=== PATIENT | female | born 1950 | race Two or more races ===

== ENCOUNTER 2020-10-15 19:28 | Emergency (ER) | payer MEDICARE, OTHER ==
[~2020-10-15] VITALS: Ht 157.5 cm; Wt 68.0 kg
[2020-10-15 19:34] VITALS: BP 173/74
[2020-10-15] MEDS ORDERED: MUPIROCIN22 GM TOPIC (19:49)
--- NOTE | 2020-10-15 19:54 | NUR ---
ED Nurse Note: Pt brought into ED via wheelchair. C/O bleeding vein on left ankle that won't stop. Pt is AAO x4, denies pain.
[2020-10-15] MEDS ORDERED: Bacitracin Oint UD TOPIC ONE (20:00)
[2020-10-15] MEDS ORDERED: Surgicel 4in x 8in TOPIC ONE (20:00)
--- NOTE | 2020-10-15 20:00 | NUR ---
ER DISCHARGE NOTE: Surgicell, bacitracin, gauze, and wrap applied to left ankle. Patient is cleared to be discharged per ER MD, pt is aaox4, on room air, with stable vital signs. pt was given d/c and prescription instructions, pt was able to verbalize understanding, pt id band removed. pt assisted back to vehicle via wheechair. pt took all belongings.
--- NOTE | 2020-10-15 20:04 | Emergency Room Report ---
History of Present Illness General Chief Complaint: Lower Extremity Injury Source: Patient Present Illness HPI Patient is a 70-year-old female past medical history of varicose veins who presents to the ER complaining of bleeding from her left ankle. Patient states that she scratched her leg and noted some bleeding at home. She became nervous and came to the emergency room. Bleeding has stopped before arrival. She denies being on any blood thinners or aspirin. She denies any weakness. She denies any other trauma. She denies any history of bleeding varicose veins. 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 Patient History Reviewed Nursing Documentation: PMH: Agreed; PSxH: Agreed Nursing Documentation-PMH Past Medical History: No History, Except For Hx Cardiac Problems: Yes - hypercholestoremia Hx Hypertension: Yes Hx Diabetes: Yes - prediabetic Review of Systems All Other Systems: negative except mentioned in HPI Physical Exam Vital Signs Date Time Temp Pulse Resp B/P (MAP) Pulse Ox O2 Delivery O2 Flow Rate FiO2 10/15/20 19:34 98.8 79 18 173/74 (107) 100 Room Air Sp02 EP Interpretation: reviewed, normal General Appearance: no apparent distress, alert, GCS 15, non-toxic Head: normocephalic, atraumatic Eyes: bilateral eye normal inspection, bilateral eye PERRL ENT: hearing grossly normal, normal pharynx, no angioedema, normal voice Neck: full range of motion, supple/symm/no masses Respiratory: chest non-tender, lungs clear, normal breath sounds, speaking full sentences Cardiovascular #1: regular rate, rhythm, no edema Gastrointestinal: non tender, soft, no guarding, no rebound Rectal: deferred Musculoskeletal: other - Right medial malleolus proximal varicose vein with evidence of prior bleeding that has stopped patient does have varicose veins of bilateral lower extremities Neurologic: manager residential III-XII nml as tested, oriented x3 Psychiatric: no suicidal/homicidal ideation Skin: no rash Lymphatic: no adenopathy Medical Decision Making Diagnostic Impression: Primary Impression: Bleeding from varicose vein ER Course Local wound care performed. After discussing risks and benefits of further diagnostics, treatment plans, as well as indications for and risks of admission, the patient is agreeable to being discharged home. I have explained that their evaluation and treatment in the emergency department today is an important step towards them achieving better health but that their evaluation today is not intended to replace further evaluation and treatment by a physician in their local clinic. I have explained that while the current findings suggest no immediate life threatening emergency they will require further evaluation and treatment by a physician of their choice in their area. They understand that it will be necessary for them to review the final reports of their ED visit with their clinic physician. We have reviewed indications for return to the Emergency Department. I have explained that additional time may need to pass and/or additional testing as an outpatient may be necessary before a definitive diagnosis can be made. They tell me they are willing to follow up as instructed within the timeframe I recommend. They appear to understand what we discussed. Additionally they understand that if they are unable to be seen by an outpatient physician they are welcome, and in fact should, return to the Emergency Department for a repeat evaluation. The patient is stable at time of discharge. Last Vital Signs Date Time Temp Pulse Resp B/P (MAP) Pulse Ox O2 Delivery O2 Flow Rate FiO2 10/15/20 19:34 98.8 79 18 173/74 (107) 100 Room Air Disposition: HOME, SELF-CARE Condition: Stable Scripts Mupirocin* (MUPIROCIN*) 22 Gm Oint...g. 1 APPLIC TOPIC THREE TIMES A DAY for 10 Days, GM Prov: Jennifer Mann M.D. 10/15/20 Referrals: JOSEPHINE,REFERRING (PCP) [facility] Tony Joyce. [facility] Patient Instructions: Bleeding Varicose Veins Additional Instructions: The patient was provided with discharge instructions, notified to follow-up with a primary care doctor and or specialist in the next 24-48 hours, and to return to the ED if they have worsening of their symptoms. Please note that this report is being documented using [employer] technology. This can lead to erroneous entry secondary to incorrect interpretation by the dictating instrument. Jennifer Mann M.D. Oct 15, 2020 20:04
== END 2020-10-15 20:02 | disposition home or self-care (01) ==
LOC: EMR 19:48
DX: I83.891 Varicose veins of right lower extremity with other complications (principal); E78.00 Pure hypercholesterolemia, unspecified
CPT/HCPCS: 99282